=== PATIENT | male | born 1965 | race Hispanic/Latino ===

== ENCOUNTER 2021-03-04 14:39 | Emergency (ER) | payer BC ==
[2021-03-04] MEDS ORDERED: METHYLPREDNISOLONE 125 MG INJ ONE (15:14)
--- NOTE | 2021-03-04 16:31 | ER ---
Nurse's Notes [facility] Name: Tomas Reynoso Age: 55 yrs Sex: Male : 1965 Arrival Date: 03/04/2021 Time: 14:52 Bed Waiting Private MD: Dnaa Wilson K Diagnosis: ED Course: 03/04 14:52 Patient arrived in ED. mr 14:52 Dana Wilson MD is Private Physician. mr 15:20 [facility] aa5 16:30 Kenny Valentino MD is Attending Physician. aa5 Administered Medications: No medications were administered Outcome: 15:30 Patient left the ED. aa5 15:30 Eloped Registration staff reported pt left at 1502 aa5 Signatures: Edie Meraz NadeemMaylin, RN RN aa5 Corrections: (The following items were deleted from the chart) 16:31 16:30 Patient left the ED. aa5 aa5
== END 2021-03-04 16:30 | disposition left against medical advice (07) ==
LOC: ER 14:39
DX: Z53.21 Procedure and treatment not carried out due to patient leaving prior to being seen by health care provider (principal)
CPT/HCPCS: J2930

== ENCOUNTER 2021-03-17 22:52 | Emergency (ER) | payer BC ==
[2021-03-18 00:21] LABS: Basophils % 0.7 % (0-1.3); Lymphocytes % 15.2 % (15.3-44.8); RBC Red Blood Cell Count 5.72 M/uL (4.33-5.43)
[2021-03-18 00:25] LABS: Protime INR 0.95
[2021-03-18 00:42] LABS: Albumin 4.2 g/dL (3.4-5.0); Bilirubin Direct 0.1 mg/dL (0-0.2); Bilirubin Total 0.5 mg/dL (0.2-1.0); Potassium 4.1 mmol/L (3.5-5.1)
--- NOTE | 2021-03-18 01:14 | ER ---
Nurse's Notes [facility] Name: Tomas Reynoso Age: 55 yrs Sex: Male : 1965 Arrival Date: 03/17/2021 Time: 22:54 Bed 12 Private MD: Diagnosis: Constipation, unspecified;Medication Adverse Effect Presentation: 03/17 23:05 Chief complaint: Patient states: was having low BP at home, 98 systolic, had recent leg em surgery 2 days ago, is taking stool softeners and had magnesium citrate and was concerned for low BP, pt reported dizziness and cold sweats, denies fever. Coronavirus screen: Vaccine status: Patient reports receiving the 2nd dose of the covid vaccine. Ebola Screen: Patient negative for fever greater than or equal to 101.5 degrees Fahrenheit, and additional compatible Ebola Virus Disease symptoms Patient denies exposure to infectious person. Patient denies travel to an Ebola-affected area in the 21 days before illness onset. No symptoms or risks identified at this time. Initial Sepsis Screen: Does the patient meet any 2 criteria? HR > 90 bpm. Does the patient have a suspected source of infection? Yes: Skin breakdown/wound. Risk Assessment: Do you want to hurt yourself or someone else? Patient reports no desire to harm self or others. Onset of symptoms was March 17, 2021. 23:05 Method Of Arrival: Wheelchair em 23:05 Acuity: CAROLYN 3 em Triage Assessment: 03/18 00:54 General: Appears. General: Appears in no apparent distress. comfortable, Behavior is df1 calm, cooperative, appropriate for age. Pain: Complains of pain in left leg Pain level that patient reports is acceptable is 2 out of 10 on a pain scale. Neuro: No deficits noted. Cardiovascular: No deficits noted. Respiratory: No deficits noted. GI: No deficits noted. Musculoskeletal: Reports pain in left leg. Historical: - Allergies: 03/17 23:10 No Known Allergies; em - PMHx: 23:10 None; em - PSHx: 23:10 Vasectomy; left leg sx; em - Immunization history:: Client reports receiving the 2nd dose of the Covid vaccine. - Social history:: Smoking status: Patient denies any tobacco usage or history of. Screenin/18 00:53 Abuse screen: Denies threats or abuse. Nutritional screening: No deficits noted. df1 Tuberculosis screening: No symptoms or risk factors identified. Fall Risk Ambulatory Aid-. Assessment: 01:12 Reassessment: No changes from previously documented assessment. Patient and/or family df1 updated on plan of care and expected duration. Pain level reassessed. General:. Vital Signs: 03/17 23:05 BP 119 / 88; Pulse 92; Resp 18; Temp 98.1; Pulse Ox 99% on R/A; Weight 96.16 kg; Height em 5 ft. 6 in. (167.64 cm); 03/18 01:09 BP 110 / 68; Pulse 86; df1 01:09 BP 110 / 68; Pulse 86; Resp 14; Pulse Ox 98% on R/A; df1 03/17 23:05 Body Mass Index 34.22 (96.16 kg, 167.64 cm) em ED Course: 03/17 22:54 Patient arrived in ED. cf2 23:10 Triage completed. em 23:10 Arm band placed on. em 23:35 Mode Cerna MD is Attending Physician. [facility] 23:37 Danica Dinero is Primary Nurse. df1 03/18 00:10 No provider procedures requiring assistance completed. Initial lab(s) drawn, by ED em staff, sent to lab. Inserted saline lock: 20 gauge in right antecubital area, using aseptic technique. ,using aseptic technique. doon by wilma mann Blood collected. 00:56 Patient has correct armband on for positive identification. Call light in reach. df1 01:11 Carlos Beltran MD is Referral Physician. 7 01:34 IV discontinued, intact, bleeding controlled, No redness/swelling at site. df1 Administered Medications: No medications were administered Outcome: 00:56 Condition: good df1 01:13 Discharge ordered by . mh7 01:34 Discharge instructions given to patient, significant other, Instructed on discharge df1 instructions, follow up and referral plans. medication usage, Demonstrated understanding of instructions, follow-up care, Prescriptions given X 01:35 Discharged to home via wheelchair. df1 01:35 Patient left the ED. df1 Signatures: Estuardo Waterman, RN RN em Inga Li cf2 Mode Cerna MD MD mh7 Furlich, Dawn df1
--- NOTE | 2021-03-18 01:14 | EDPHYS ---
Physician Documentation [facility] Name: Tomas Reynoso Age: 55 yrs Sex: Male : 1965 Arrival Date: 03/17/2021 Time: 22:54 Bed 12 Private MD: ED Physician Mode Cerna HPI: 03/17 23:45 This 55 yrs old Male presents to ER via Wheelchair with complaints of Post mh7 Surgical Pain, low blood pressure, . 23:45 Patient states that he had knee surgery 2 days ago and have been taking hydrocodone and mh7 had constipation. He states that he has been having some sweating and states that his blood pressure was lower than usual the lowest was 98 systolic. He took magnesium citrate for constipation which has resolved and was switched to tramadol.. Onset: The symptoms/episode began/occurred this morning, today. Severity of symptoms: At their worst the symptoms were mild this morning, today, in the emergency department the symptoms have improved markedly. The patient has been recently seen by a physician: 2 day(s) ago, Had left knee surgery. Patient states that he was taking hydrocodone status post left knee surgery 2 days ago and has had some constipation, sweating, lower than usual blood pressure. He denies any headache, chest pain, abdominal pain, shortness of breath, fever, nausea, vomiting, diarrhea, dizziness, numbness/tingling, or weakness. He denies any pain in the left lower extremity.. Historical: - Allergies: 23:10 No Known Allergies; em - PMHx: 23:10 None; em - PSHx: 23:10 Vasectomy; left leg sx; em - Immunization history:: Client reports receiving the 2nd dose of the Covid vaccine. - Social history:: Smoking status: Patient denies any tobacco usage or history of. ROS: 23:45 Constitutional: Negative for fever, chills, and weight loss, Eyes: Negative for injury, mh7 pain, redness, and discharge, ENT: Negative for injury, pain, and discharge, Neck: Negative for injury, pain, and swelling, Cardiovascular: Negative for chest pain, palpitations, and edema, Respiratory: Negative for shortness of breath, cough, wheezing, and pleuritic chest pain. 23:45 Back: Negative for injury and pain, : Negative for injury, bleeding, discharge, and swelling, MS/Extremity: Negative for injury and deformity, Skin: Negative for injury, rash, and discoloration, Neuro: Negative for headache, weakness, numbness, tingling, and seizure, Psych: Negative for depression, anxiety, suicide ideation, homicidal ideation, and hallucinations, Allergy/Immunology: Negative for hives, rash, and allergies, Endocrine: Negative for neck swelling, polydipsia, polyuria, polyphagia, and marked weight changes, Hematologic/Lymphatic: Negative for swollen nodes, abnormal bleeding, and unusual bruising. 23:45 Abdomen/GI: Positive for constipation, Now resolved, Negative for abdominal pain, nausea and vomiting, nausea, vomiting, and diarrhea, nausea, vomiting, diarrhea, abdominal cramps, abdominal distension, anorexia, dysphagia, hematemesis, black/tarry stool, rectal pain, rectal bleeding, bowel incontinence, flatulence. Exam: 23:45 Constitutional: This is a well developed, well nourished patient who is awake, alert, mh7 and in no acute distress. Head/Face: Normocephalic, atraumatic. Eyes: Pupils equal round and reactive to light, extra-ocular motions intact. Lids and lashes normal. Conjunctiva and sclera are non-icteric and not injected. Cornea within normal limits. Periorbital areas with no swelling, redness, or edema. Neck: Trachea midline, no thyromegaly or masses palpated, and no cervical lymphadenopathy. Supple, full range of motion without nuchal rigidity, or vertebral point tenderness. No Meningismus. Chest/axilla: Normal chest wall appearance and motion. Nontender with no deformity. No lesions are appreciated. Cardiovascular: Regular rate and rhythm with a normal S1 and S2. No gallops, murmurs, or rubs. Normal PMI, no JVD. No pulse deficits. Respiratory: Lungs have equal breath sounds bilaterally, clear to auscultation and percussion. No rales, rhonchi or wheezes noted. No increased work of breathing, no retractions or nasal flaring. Abdomen/GI: Soft, non-tender, with normal bowel sounds. No distension or tympany. No guarding or rebound. No evidence of tenderness throughout. Back: No spinal tenderness. No costovertebral tenderness. Full range of motion. Skin: Warm, dry with normal turgor. Normal color with no rashes, no lesions, and no evidence of cellulitis. Neuro: Awake and alert, GCS 15, oriented to person, place, time, and situation. Cranial nerves II-XII grossly intact. Motor strength 5/5 in all extremities. Sensory grossly intact. Cerebellar exam normal. Normal gait. Psych: Awake, alert, with orientation to person, place and time. Behavior, mood, and affect are within normal limits. 23:45 Musculoskeletal/extremity: Extremities: noted in the left leg: Surgical dressing mh7 intact. No tenderness., Circulation is intact in all extremities. Sensation intact. Compartment Syndrome exam of affected extremity: is normal. no pain, no numbness, no tingling, no sensation deficit, no palor, no weak pulses, Calves: are non-tender, have equal circumference, Declined complete removal of left lower extremity dressing.. Vital Signs: 23:05 BP 119 / 88; Pulse 92; Resp 18; Temp 98.1; Pulse Ox 99% on R/A; Weight 96.16 kg; Height em 5 ft. 6 in. (167.64 cm); 03/18 01:09 BP 110 / 68; Pulse 86; df1 01:09 BP 110 / 68; Pulse 86; Resp 14; Pulse Ox 98% on R/A; df1 03/17 23:05 Body Mass Index 34.22 (96.16 kg, 167.64 cm) em MDM: 01:07 Differential Diagnosis constipation, dehydration, medication adverse reaction. Data [facility] reviewed: vital signs, nurses notes, lab test result(s), CBC, electrolytes. Data interpreted: Pulse oximetry: on room air is 99 %. Interpretation: normal. Counseling: I had a detailed discussion with the patient and/or guardian regarding: the historical points, exam findings, and any diagnostic results supporting the discharge/admit diagnosis, lab results, the need for outpatient follow up, to return to the emergency department if symptoms worsen or persist or if there are any questions or concerns that arise at home. Response to treatment: the patient's symptoms have resolved after treatment, the patient's blood pressure is in an acceptable range, mental status has returned to baseline, the patient no longer shows bradycardia, the patient is not short of breath, the patient is not tachycardic, the patient's pain is gone, the patient's temperature has normalized. 01:13 Patient medically screened. [facility] 03/17 23:56 Order name: CBC with Diff [facility] 03/17 23:56 Order name: Basic Metabolic Panel; Complete Time: 00:50 [facility] 03/17 23:56 Order name: LFT's; Complete Time: 00:50 [facility] 03/17 23:56 Order name: Protime (+inr); Complete Time: 00:50 [facility] 03/17 23:56 Order name: Ptt, Activated; Complete Time: 00:50 [facility] 03/17 23:56 Order name: CBC with Automated Diff; Complete Time: 00:50 EDMS Administered Medications: No medications were administered Disposition Summary: 03/18/21 01:13 Discharge Ordered Location: Home [facility] Problem: new [facility] Symptoms: are resolved [facility] Condition: Stable [facility] Diagnosis - Constipation, unspecified [facility] - Medication Adverse Effect [facility] Followup: [facility] - With: Private Physician - When: 2 - 3 days - Reason: Worsening of condition, Recheck today's complaints, Continuance of care, Re-evaluation by your physician Followup: [facility] - With: Carlos Beltran MD - When: 2 - 3 days - Reason: Worsening of condition, Recheck today's complaints Discharge Instructions: - Discharge Summary Sheet [facility] - Constipation, Adult, [id number] [facility] Forms: - Medication Reconciliation Form [facility] - Thank You Letter [facility] - Antibiotic Education [facility] - Prescription Opioid Use [facility] Signatures: Dispatcher [employer] Estuardo Martell RN RN em Holmes, Maurice, MD MD [facility] Corrections: (The following items were deleted from the chart) 06:42 01:08 Musculoskeletal/extremity: Extremities: noted in the left leg: Dressing to left [facility] lower extremity, No calf tenderness, no thigh tenderness, Circulation is intact in all extremities. Sensation intact. DVT Exam: no pain, no swelling, no tenderness, negative Homans' sign noted on exam, no appreciated bluish discoloration, no erythema, no increased warmth, Calves: are non-tender, have equal circumference, [facility]
[2021-03-18 01:42] VITALS: TEMP 98.1
[2021-03-18 01:44] VITALS: BP 110/68; O2SAT 98
== END 2021-03-18 01:35 | disposition home or self-care (01) ==
LOC: ER 22:52
DX: K59.00 Constipation, unspecified (principal); T40.2X5A Adverse effect of other opioids, initial encounter; Z98.890 Other specified postprocedural states
CPT/HCPCS: 36415; 80048; 80076; 85025; 85610; 85730; 99283